=== PATIENT | male | born 1955 | race Caucasian/White ===

== ENCOUNTER → 2016-09-17 | Outpatient (CLI) | payer OTHER ==
--- NOTE | 2016-09-17 13:37 | RADRPT ---
PROCEDURE: XR pelvis / bilateral hips. CLINICAL INDICATION: Hip pain TECHNIQUE: AP pelvis/AP and lateral right and left hip views available for review. COMPARISON: None available FINDINGS: The osseous structures are normal in mineralization, architecture and alignment. No fractures are i dentified. No osseous lesions are identified. The joints are unremarkable. The soft tissues are u nremarkable. IMPRESSION: Unremarkable examination RPTAT: [facility] .Galdino Persaud MD, MD Date Time Electronically viewed and signed by .Galdino Persaud MD, on 09/17/2016 13:37 .B/
--- NOTE | 2016-09-17 13:40 | RADRPT ---
PROCEDURE: XR bilateral knees. CLINICAL INDICATION: Knee pain TECHNIQUE: AP weightbearing, PA weightbearing, lateral weightbearing and sunrise views of each kne e are available for review. COMPARISON: None available FINDINGS: Right knee: There is mild osteoarthrosis involving the right medial tibial femoral compartment and lateral tibia l femoral compartment . This is associated with mild joint space narrowing and mild osteophytosis. Left knee: There is mild osteoarthrosis involving the left medial tibial femoral compartment. This is associate d with joint space narrowing. There is otherwise normal mineralization, architecture and alignment. No fractures are identified. No osseous lesions are identified. The soft tissues are unremarkable. IMPRESSION: Mild osteoarthrosis involving the right medial tibial femoral compartment and lateral tibial femoral compartment Mild osteoarthrosis involving the left medial tibial femoral compartment. RPTAT: [facility] .Galdino Persaud MD, MD Date Time Electronically viewed and signed by .Galdino Persaud MD, on 09/17/2016 13:39 .B/
== END | disposition home or self-care (01) ==
LOC: HKI 11:13
PROVIDERS: ATTEND Orthopaedic Surgery
DX: M17.0 Bilateral primary osteoarthritis of knee (principal); Z74.01 Bed confinement status; E11.9 Type 2 diabetes mellitus without complications; Z87.891 Personal history of nicotine dependence; S83.221A Peripheral tear of medial meniscus, current injury, right knee, initial encounter; S83.271A Complex tear of lateral meniscus, current injury, right knee, initial encounter; S83.272A Complex tear of lateral meniscus, current injury, left knee, initial encounter; X58.XXXA Exposure to other specified factors, initial encounter; M25.559 Pain in unspecified hip
CPT/HCPCS: 73523; G0463